=== PATIENT | male | born 1995 | race African-American/Black ===

== ENCOUNTER 2017-06-17 23:19 | Emergency (ER) | payer MEDICAID, OTHER ==
[~2017-06-17] VITALS: Ht 170.2 cm; Wt 120.0 kg
[~2017-06-17 23:19] MED LIST: CIPROFLOXACIN
[2017-06-18] MEDS ORDERED: IBUPROFEN 600MG TABLET PO ONE (00:30)
[2017-06-18 01:00] VITALS: BP 116/85
== END 2017-06-18 01:02 | disposition home or self-care (01) ==
LOC: ER 23:19
DX: M27.69 Other endosseous dental implant failure (principal); F12.10 Cannabis abuse, uncomplicated
CPT/HCPCS: 99282

== ENCOUNTER 2017-08-15 16:34 | Emergency (ER) | payer MEDICAID ==
[~2017-08-15] VITALS: Ht 170.2 cm; Wt 127.0 kg
[2017-08-15 17:14] VITALS: BP 145/62
[2017-08-15] MEDS: KETOROLAC 60MG/2ML VIAL IM ONE (22:49)
== END 2017-08-16 00:04 | disposition home or self-care (01) ==
LOC: ER 16:34
DX: J03.90 Acute tonsillitis, unspecified (principal); F17.200 Nicotine dependence, unspecified, uncomplicated; F12.10 Cannabis abuse, uncomplicated
CPT/HCPCS: 71010; 96372; 99283; J1885

== ENCOUNTER 2019-03-26 11:57 | Emergency (ER) | payer MEDICAID ==
[~2019-03-26] VITALS: Ht 170.2 cm; Wt 120.0 kg
[2019-03-26] MEDS ORDERED: IBUPROFEN 600MG TABLET PO STA (13:47)
[2019-03-26] MEDS ORDERED: AZITHROMYCIN 500 MG TABLET PO ONE (14:45)
[2019-03-26] MEDS ORDERED: KETOROLAC 60MG/2ML VIAL IM ONE (15:00)
[2019-03-26 15:18] VITALS: BP 139/67
== END 2019-03-26 15:17 | disposition home or self-care (01) ==
LOC: ER 11:57
DX: J18.9 Pneumonia, unspecified organism (principal)
CPT/HCPCS: 71045; 96372; 99283; J1885

== ENCOUNTER 2020-03-27 07:52 | Emergency (ER) | payer MEDICAID ==
[~2020-03-27] VITALS: Ht 170.2 cm; Wt 112.0 kg
[2020-03-27] MEDS ORDERED: KETOROLAC 60MG/2ML VIAL IM STA (08:37)
[2020-03-27 09:05] VITALS: BP 134/89
== END 2020-03-27 11:03 | disposition home or self-care (01) ==
LOC: ER 07:59
DX: S93.492A Sprain of other ligament of left ankle, initial encounter (principal); M25.511 Pain in right shoulder; W10.8XXA Fall (on) (from) other stairs and steps, initial encounter; Y93.01 Activity, walking, marching and hiking; Y92.89 Other specified places as the place of occurrence of the external cause; F12.90 Cannabis use, unspecified, uncomplicated
CPT/HCPCS: 73610; 73630; 96372; 99284; J1885

== ENCOUNTER 2020-11-15 00:27 | Emergency (ER) | payer MEDICAID ==
[~2020-11-15] VITALS: Ht 170.2 cm; Wt 150.0 kg
[2020-11-15 00:49] VITALS: BP 120/59
[2020-11-15] MEDS ORDERED: NA S LEFTEYE (01:41)
== END 2020-11-15 01:48 | disposition home or self-care (01) ==
LOC: ER 00:27
DX: H11.32 Conjunctival hemorrhage, left eye (principal); R05 Cough
CPT/HCPCS: 99282

== ENCOUNTER 2025-01-31 18:59 | Emergency (ER) | payer MEDICAID, OTHER ==
[~2025-01-31] VITALS: Ht 170.2 cm; Wt 140.0 kg
[~2025-01-31 18:59] MED LIST changes: +NA S LEFTEYE
[2025-01-31 19:02] VITALS: O2SAT 98
[2025-01-31] MEDS: KETOROLAC 15MG/ML VIAL IM ONE (20:58)
[2025-01-31 21:27] LABS: BASOPHILS % 0.7 % (0.0-2.0); EOSINOPHILS % 4.4 % (0.0-5.0); HEMOGLOBIN. 12.7 g/dL (14.0-18.0); LYMPHOCYTES % 41.9 % (20.0-50.0); MEAN CORPUSCULAR HGB CONC 33.4 g/dL (31.0-37.0); MEAN CORPUSCULAR VOLUME 81.1 fL (80.0-94.0); MEAN PLATELET VOLUME 8.4 fl (7.4-10.4); MONOCYTES % 9.6 % (2.0-8.0); NEUTROPHILS % 43.4 % (40.0-76.0); PLATELET 193 x1000/uL (130-400); RED BLOOD CELL COUNT 4.69 mill/uL (4.7-6.1); RED CELL DISTRIBUTION WIDTH 15.3 % (11.6-14.6); WHITE BLOOD COUNT 7.5 x1000/uL (4.5-11.0)
[2025-01-31 21:39] LABS: CHLORIDE 105 mEq/L (98-107); POTASSIUM 3.8 mEq/L (3.5-5.1); SODIUM 138 mEq/L (136-145)
[2025-01-31 21:40] LABS: CALCIUM 8.8 mg/dL (8.7-10.4); CARBON DIOXIDE 25 mEq/L (21-32)
[2025-01-31 21:45] LABS: CREATININE 0.9 mg/dL (0.6-1.3); GLUCOSE 100 mg/dL (70-105); UREA NITROGEN BLOOD 10 mg/dL (9-23)
[2025-01-31 22:57] VITALS: BP 135/66; PULSE 64; RESP 20; TEMP 36.5; O2SAT 100
[2025-01-31 23:07] LABS: CLARITY URINE CLEAR (CLEAR); COLOR URINE YELLOW (YELLOW); GLUCOSE URINE NEGATIVE (NEGATIVE); KETONES URINE NEGATIVE (NEGATIVE); LEUKOCYTE ESTERASE URINE NEGATIVE (NEGATIVE); NITRITE URINE NEGATIVE (NEGATIVE); OCCULT BLOOD URINE NEGATIVE (NEGATIVE); PH URINE 5.5 (4.5-8.0); PROTEIN URINE NEGATIVE (NEGATIVE); SPECIFIC GRAVITY URINE 1.011 (1.005-1.030); UROBILINOGEN URINE 0.2 E.U./dL (0.2-1.0)
[2025-01-31] MEDS ORDERED: CEFAZOLIN 1000MG PREMIX 50 ML IV ONE (23:45)
== END 2025-02-01 00:30 | disposition left against medical advice (07) ==
LOC: ER 18:59 → EDBEDREQ 23:47 → EDBEDREQTM 23:47 → ENRESERV 02-01 00:05 → ER 02-01 00:30 → CANBEDREQ 02-01 00:42
DX: K61.0 Anal abscess (principal); F12.90 Cannabis use, unspecified, uncomplicated
CPT/HCPCS: 80048; 81003; 85025; 36415; 74176; 96372; 99285; J1885; Z7610; J0690

== ENCOUNTER 2025-02-08 12:27 | Emergency (ER) | payer OTHER ==
[~2025-02-08] VITALS: Ht 177.8 cm; Wt 110.0 kg
[2025-02-08 12:38] VITALS: O2SAT 100
[2025-02-08] MEDS: ACETAMINOPHEN 325MG TABLET PO STA (13:12)
[2025-02-08] MEDS: KETOROLAC 30MG/ML VIAL IM ONE (13:42)
[2025-02-08 14:09] LABS: INR 0.9; PROTHROMBIN TIME 9.9 sec (9.6-11.0)
[2025-02-08 14:15] LABS: CHLORIDE 105 mEq/L (98-107); POTASSIUM 4.4 mEq/L (3.5-5.1); SODIUM 139 mEq/L (136-145)
[2025-02-08 14:16] LABS: CARBON DIOXIDE 29 mEq/L (21-32)
[2025-02-08 14:17] LABS: CALCIUM 9.3 mg/dL (8.7-10.4)
[2025-02-08 14:19] LABS: HEMATOCRIT. 42.3 % (42.0-52.0); HEMOGLOBIN. 13.7 g/dL (14.0-18.0); MEAN CORPUSCULAR HEMOGLOBIN 26.9 pg (28.0-32.0); MEAN CORPUSCULAR HGB CONC 32.3 g/dL (31.0-37.0); MEAN CORPUSCULAR VOLUME 83.1 fL (80.0-94.0); MEAN PLATELET VOLUME 9.2 fl (7.4-10.4); PLATELET 203 x1000/uL (130-400); RED BLOOD CELL COUNT 5.08 mill/uL (4.7-6.1); RED CELL DISTRIBUTION WIDTH 15.3 % (11.6-14.6)
[2025-02-08 14:20] LABS: DIFFERENTIAL COMMENT 1
[2025-02-08 14:21] LABS: GLUCOSE 84 mg/dL (70-105)
[2025-02-08 14:22] LABS: UREA NITROGEN BLOOD 9 mg/dL (9-23)
[2025-02-08] MEDS ORDERED: CEPH250C2 MT (14:38)
[2025-02-08 14:52] VITALS: BP 122/62; PULSE 61; RESP 16; TEMP 37.1; O2SAT 100
[2025-02-08 15:32] LABS: CLARITY URINE CLEAR (CLEAR); COLOR URINE YELLOW (YELLOW); GLUCOSE URINE NEGATIVE (NEGATIVE); KETONES URINE NEGATIVE (NEGATIVE); LEUKOCYTE ESTERASE URINE NEGATIVE (NEGATIVE); NITRITE URINE NEGATIVE (NEGATIVE); OCCULT BLOOD URINE NEGATIVE (NEGATIVE); PH URINE 6.5 (4.5-8.0); PROTEIN URINE NEGATIVE (NEGATIVE); SPECIFIC GRAVITY URINE 1.011 (1.005-1.030); UROBILINOGEN URINE 0.2 E.U./dL (0.2-1.0)
[2025-02-08 15:41] LABS: PLATELET ESTIMATE NORMAL
== END 2025-02-08 14:53 | disposition home or self-care (01) ==
LOC: ER 12:27
DX: K61.0 Anal abscess (principal); K62.89 Other specified diseases of anus and rectum; F12.90 Cannabis use, unspecified, uncomplicated; Z79.899 Other long term (current) drug therapy
CPT/HCPCS: 99283; 80048; 81003; 83690; 85025; 85610; 87040; 36415; 96372; J1885